=== PATIENT | female | born 1995 | race Caucasian/White ===

== ENCOUNTER 2018-05-07 23:46 | Emergency (ER) | payer MEDICAID, OTHER ==
[~2018-05-07] VITALS: Ht 162.6 cm; Wt 59.0 kg
[2018-05-07 23:46] VITALS: BP 108/64
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
[2018-05-08] MEDS ORDERED: BOOSTRIX VACCINE SYRINGE IM STA
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
--- NOTE | 2018-05-08 00:50 | NUR ---
LAVERN PHILLIPS STATES PATIENT IS REFUSING ALL IMAGING. WENT TO PATIENTS ROOM, PATIENT STATES SHE JUST WANTS TO GO HOME AND GO TO SLEEP.EXPLAINED RISK AND CONSEQUENCES TO PATIENT IF SHE LEAVED, PATIENT VOICED UNDERSTANDING. GRANDMA OF PATIENT SIGNED AMA FORM. IV DC'D, TIP INTACT, NO BLEEDING
[2018-05-08 01:02] VITALS: BP 113/68
== END 2018-05-08 00:50 | disposition left against medical advice (07) ==
LOC: EDBD 23:46 → ER 23:46
DX: S00.93XA Contusion of unspecified part of head, initial encounter (principal); S10.93XA Contusion of unspecified part of neck, initial encounter; M79.671 Pain in right foot; N28.9 Disorder of kidney and ureter, unspecified; F10.129 Alcohol abuse with intoxication, unspecified; F12.10 Cannabis abuse, uncomplicated; F15.10 Other stimulant abuse, uncomplicated; F17.210 Nicotine dependence, cigarettes, uncomplicated; Z88.6 Allergy status to analgesic agent; Y04.0XXA Assault by unarmed brawl or fight, initial encounter; Y93.89 Activity, other specified; Y92.098 Other place in other non-institutional residence as the place of occurrence of the external cause; Y99.8 Other external cause status
CPT/HCPCS: 36415; 84703; 90471; 99284; G0481

== ENCOUNTER 2018-06-19 03:23 | Emergency (ER) | payer MEDICAID ==
[~2018-06-19] VITALS: Ht 160 cm; Wt 59.0 kg
[2018-06-19] MEDS ORDERED: ATARAX PO STA (03:45)
[2018-06-19] MEDS ORDERED: ATARAX ONE (03:52)
--- NOTE | 2018-06-19 03:53 | PCM.EKG ---
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
[2018-06-19 04:11] LABS: BASOPHIL % 0.2 % (0.0-0.2); EOSINOPHIL # 0.1 10^3/uL (0.0-0.2); EOSINOPHIL % 0.4 % (0.0-5.0); HEMOGLOBIN 13.9 g/dL (12.0-15.0); LYMPHOCYTES # 1.8 10^3/uL (1.0-4.8); LYMPHOCYTES % 11.4 % (24.0-44.0); MEAN CELL HGB 31.6 pg (26-34); MEAN CELL HGB CONCENTRATION 34.1 g/dL (33-37); MEAN CORP VOLUME 92.7 fL (78-100); MONOCYTES % 6.3 % (5.0-12.0); NEUTROPHIL # 12.9 10^3/uL (1.8-7.7); NEUTROPHILS % 81.3 % (41.0-85.0); WHITE BLOOD CELL 15.9 10^3/uL (4.5-11.0)
--- NOTE | 2018-06-19 04:20 | DIREP ---
PROCEDURE:CHEST 1 VIEW COMPARISON:None. INDICATIONS:Chest pain FINDINGS: LUNGS/PLEURA:No significant pulmonary parenchymal abnormalities. No effusions. VASCULATURE:Normal. Unremarkable pulmonary vasculature. CARDIAC:Normal. No cardiac silhouette abnormality or cardiomegaly. MEDIASTINUM:Normal. No visible mass or adenopathy. BONES:Normal. No fracture or visible bony lesion. OTHER:Negative. CONCLUSION:Normal examination. Dictated by: Michael Boggs Jr. on 06/19/2018 at 04:18 AM
[2018-06-19 04:27] LABS: ALANINE AMINOTRANSFERASE(ML) 28 U/L (12-78); ALKALINE PHOSPHATASE 85 U/L (50-136); ASPARTATE AMINO TRANSFERASE 38 U/L (0-35); CALCIUM 9.1 mg/dL (8.4-10.5); CARBON DIOXIDE 24.3 mmol/L (20.0-32); GLUCOSE 103 mg/dL (70-110)
[2018-06-19 04:43] VITALS: BP 132/57
== END 2018-06-19 04:45 | disposition home or self-care (01) ==
LOC: ER 03:23
DX: F41.9 Anxiety disorder, unspecified (principal); F17.210 Nicotine dependence, cigarettes, uncomplicated; R79.1 Abnormal coagulation profile; Z88.6 Allergy status to analgesic agent
CPT/HCPCS: 36415; 71045; 80053; 84484; 84703; 85025; 85379; 93005; 99285

== ENCOUNTER 2018-10-07 21:48 | Emergency (ER) | payer MEDICAID, OTHER ==
[~2018-10-07] VITALS: Ht 160 cm; Wt 61.2 kg
--- NOTE | 2018-10-07 21:48 | NUR ---
POISON CONTROL SPOKE WITH SHEILA MUÑIZ AT [facility] POISON CONTROL. STATES TO DO A TYLENOL LEVEL 4 HOURS AFTER INGESTION. FOR THE BENADRYL WATCH FOR SEIZURES,SEROTONIN SYNDROME,AND WATCH FOR WIDE QRS IF >100 START BICARB DRIP. GIVEN BENZOS AND IV FLUIDS. EDP NOTIFIED.
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
--- NOTE | 2018-10-07 22:13 | PCM.EKG ---
[facility] Test Date: 2018-10-07 Test Time: 22:12:11 Pat Name: LORENZO NAJERA Department: Room: Gender: F Asset Coordinator: YARIEL : 1995 Requested By: TRAVIS PAUL Order Number: [id number] Reading MD: Travis PAUL Measurements Intervals [place] Rate: 85 P: 67 WY: 152 QRS: 88 QRSD: 80 T: 40 QT: 362 QTc: 430 Interpretive Statements Normal sinus rhythm Normal ECG Compared to ECG 06/19/2018 03:38:49 Sinus tachycardia no longer present Electronically Signed On 10-12-2018 7:45:[address] LIGHT WIRER by Travis PAUL Please click the below link to view image of tracing.
[2018-10-07 22:16] LABS: BASOPHIL # 0.1 10^3/uL (0.0-0.1); BASOPHIL % 0.7 % (0.0-0.2); EOSINOPHIL % 0.6 % (0.0-5.0); HEMOGLOBIN 13.5 g/dL (12.0-15.0); LYMPHOCYTES # 2.7 10^3/uL (1.0-4.8); LYMPHOCYTES % 40.6 % (24.0-44.0); MEAN CELL HGB 30.8 pg (26-34); MEAN CELL HGB CONCENTRATION 32.5 g/dL (33-37); MEAN CORP VOLUME 94.8 fL (78-100); MONOCYTES # 0.5 10^3/uL (0.3-0.8); MONOCYTES % 7.3 % (5.0-12.0); NEUTROPHIL # 3.3 10^3/uL (1.8-7.7); NEUTROPHILS % 49.5 % (41.0-85.0); RED CELL DISTRIBUTION WIDTH 13.3 % (11.5-14.5); WHITE BLOOD CELL 6.7 10^3/uL (4.5-11.0)
[2018-10-07 22:18] LABS: BILIRUBIN,URINE NEGATIVE (NEGATIVE); UROBILINOGEN,URINE NORMAL (NEGATIVE)
[2018-10-07 22:32] LABS: HCG URINE PREGNANCY NEGATIVE (NEGATIVE)
[2018-10-07 22:37] LABS: APPEARANCE,URINE CLEAR (CLEAR); UA COLOR YELLOW (YELLOW)
[2018-10-07 22:41] LABS: CALCIUM 8.6 mg/dL (8.4-10.5); CARBON DIOXIDE 23.9 mmol/L (20.0-32)
[2018-10-07] MEDS ORDERED: NS 1000ML 1,000 ML IV STA (22:55)
[2018-10-07] MEDS ORDERED: NS 1000ML 1,000 ML ONE (22:57)
[2018-10-07 23:05] VITALS: BP 116/66
[2018-10-08 00:05] VITALS: BP 145/75
--- NOTE | 2018-10-08 00:30 | NUR ---
UPDATE PATIENT SITTING UP IN BED TALKING WITH [place] [employer] OFFICER, OFFICER AT DOOR. NO NEEDS VOICED BY PATIENT OR OFFICER
[2018-10-08 01:05] VITALS: BP 124/73
[2018-10-08 02:05] VITALS: BP 124/75
[2018-10-08 02:30] LABS: ALANINE AMINOTRANSFERASE(ML) 16 U/L (12-78); ALKALINE PHOSPHATASE 79 U/L (50-136); ASPARTATE AMINO TRANSFERASE 21 U/L (0-35)
--- NOTE | 2018-10-08 02:33 | NUR ---
TPC CALLED TPC FOR CONSULT WITH PATIENT, STATES THEY WILL NOTIFY COURIER DRIVER
--- NOTE | 2018-10-08 02:48 | NUR ---
TPC SINGH WITH TPC CALLED AND STATED SHE WILL GO TO THE OFFICE AND CALL ME BACK
[2018-10-08 03:05] VITALS: BP 109/60
--- NOTE | 2018-10-08 03:08 | NUR ---
TPC PATIENT IN WITH SINGH FROM [facility] AND [place] [employer] OFFICER FOR TELECONFERENCE
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
--- NOTE | 2018-10-08 03:39 | NUR ---
MARCOS SPOKE WITH CAMRYN AT THE [facility], PAPERWORK HAS BEEN FAX. [facility] WAITING ON ASSESSMENT FROM ANIBAL WITH TPC.
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
[2018-10-08 04:05] VITALS: BP 110/68
--- NOTE | 2018-10-08 04:06 | NUR ---
ARLEN KING STATES THEY HAVE NO REASON TO KEEP PATIENT, NO SUICIDAL STATEMENTS WERE MADE. ONEYDA TREVIÑO STATES THEY THEY ARE RELEASING PATIENT
--- NOTE | 2018-10-08 04:08 | NUR ---
IV PATIENT DC'D IV, TIP INTACT, NO BLEEDING
[2018-10-08 04:15] VITALS: BP 110/68
== END 2018-10-08 04:15 | disposition home or self-care (01) ==
LOC: EDBD 21:48 → ER 21:48
DX: T39.1X2A Poisoning by 4-Aminophenol derivatives, intentional self-harm, initial encounter (principal); F10.129 Alcohol abuse with intoxication, unspecified; Z88.6 Allergy status to analgesic agent; Y92.89 Other specified places as the place of occurrence of the external cause; Y90.6 Blood alcohol level of 120-199 mg/100 ml
CPT/HCPCS: 36415 ×2; 80053; 80076; 80307; 81000; 81025; 85025; 87077; 87086; 87186; 93005; 99284; G0481 ×2; G0482; G0483 ×2; J7030

== ENCOUNTER 2018-12-15 17:54 | Emergency (ER) | payer OTHER ==
[~2018-12-15] VITALS: Ht 160 cm; Wt 59.0 kg
[2018-12-15 17:59] VITALS: BP 119/69
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
[2018-12-15 18:40] VITALS: BP 119/69
== END 2018-12-15 18:37 | disposition home or self-care (01) ==
LOC: ER 17:54 → EDBD 17:54 → ER 18:37
DX: S01.511A Laceration without foreign body of lip, initial encounter (principal); S70.311A Abrasion, right thigh, initial encounter; F17.210 Nicotine dependence, cigarettes, uncomplicated; F12.10 Cannabis abuse, uncomplicated; Z88.6 Allergy status to analgesic agent; Y04.0XXA Assault by unarmed brawl or fight, initial encounter; Y93.89 Activity, other specified; Y92.89 Other specified places as the place of occurrence of the external cause; Y99.8 Other external cause status
CPT/HCPCS: 99283

== ENCOUNTER 2019-01-19 12:18 | Emergency (ER) | payer MEDICAID, OTHER ==
[~2019-01-19] VITALS: Ht 160 cm; Wt 58.5 kg
[2019-01-19 12:41] VITALS: BP 109/60
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
[2019-01-19 13:18] VITALS: BP 109/60
== END 2019-01-19 13:13 | disposition home or self-care (01) ==
LOC: ER 12:18
DX: L03.811 Cellulitis of head [any part, except face] (principal); L02.811 Cutaneous abscess of head [any part, except face]; F17.210 Nicotine dependence, cigarettes, uncomplicated; Z88.6 Allergy status to analgesic agent
CPT/HCPCS: 99283

== ENCOUNTER 2019-06-20 11:39 | Emergency (ER) | payer OTHER ==
[~2019-06-20] VITALS: Ht 160 cm; Wt 59.0 kg
[2019-06-20 11:59] VITALS: BP 116/81
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
[2019-06-20 12:15] LABS: BILIRUBIN,URINE NEGATIVE (NEGATIVE); UROBILINOGEN,URINE NORMAL (NEGATIVE)
[2019-06-20 12:17] LABS: APPEARANCE,URINE CLEAR (CLEAR); UA COLOR YELLOW (YELLOW)
[2019-06-20 12:26] LABS: BASOPHIL # 0.1 10^3/uL (0.0-0.1); BASOPHIL % 0.5 % (0.0-0.2); EOSINOPHIL # 0.2 10^3/uL (0.0-0.2); EOSINOPHIL % 1.8 % (0.0-5.0); HEMOGLOBIN 13.1 g/dL (12.0-15.0); LYMPHOCYTES % 19.5 % (24.0-44.0); MEAN CELL HGB 31.6 pg (26-34); MEAN CELL HGB CONCENTRATION 33.2 g/dL (33-37); MEAN CORP VOLUME 94.9 fL (78-100); MEAN PLATELET VOLUME 8.3 fL (7.8-11.0); MONOCYTES # 0.7 10^3/uL (0.3-0.8); MONOCYTES % 6.5 % (5.0-12.0); NEUTROPHIL # 7.2 10^3/uL (1.8-7.7); NEUTROPHILS % 71.5 % (41.0-85.0); RED CELL DISTRIBUTION WIDTH 12.9 % (11.5-14.5); WHITE BLOOD CELL 10.1 10^3/uL (4.5-11.0)
--- NOTE | 2019-06-20 12:27 | ER.PDOC ---
General Chief Complaint: Female Urogenital Problems Stated Complaint: KIDNEY PAIN Time seen by MD: 11:48 Source: patient Exam Limitations: no limitations History of Present Illness Initial Comments Pt c/o L flank pain, has had some mild dysuria today as well. Timing/Duration: 24 hours Severity/Quality: moderate Radiation: no radiation Associated Symptoms: other (dysuria) Exacerbated by: nothing Relieved By: nothing Allergies: Coded Allergies: ibuprofen (Verified Adverse Reaction, Unknown, 08/27/16) Home Meds Unable to Obtain Active Prescriptions or Reported Meds Vital Signs First Vital Signs Date Time Temp Pulse Resp B/P (MAP) Pulse Ox O2 Delivery O2 Flow Rate FiO2 06/20/19 11:56 98.1 88 18 06/20/19 11:57 98 Room Air 06/20/19 11:59 116/81 (93) Last Vital Signs Date Time Temp Pulse Resp B/P (MAP) Pulse Ox O2 Delivery O2 Flow Rate FiO2 06/20/19 11:59 98.1 88 18 116/81 (93) 98 Room Air Past Medical History Medical History: no pertinent history Surgical History: other Social History Smoking: cigarettes Alcohol Use: none Drug Use: none Constitutional: denies chills, denies fever EENTM: no symptoms reported Respiratory: no symptoms reported Cardiovascular: no symptoms reported Gastrointestinal: no symptoms reported Genitourinary: burning, dysuria; denies discharge, denies frequency; flank pain ; denies hematuria, denies incontinence, denies urgency Musculoskeletal: no symptoms reported Skin: no symptoms reported Psychiatric/Neurological: no symptoms reported All Other Systems: Reviewed and Negative Physical Exam General Appearance: No Apparent Distress HEENT: PERRL/EOMI, Normal ENT Inspection, TMs Normal, Pharynx Normal Neck: Non-Tender, Full Range of Motion, Supple, Normal Inspection Respiratory: chest non-tender, lungs clear, normal breath sounds, no respiratory distress, no accessory muscle use Cardiovascular: Regular Rate, Rhythm, No Edema, No Gallop, No JVD, No Murmur Gastrointestinal: Normal Bowel Sounds Rectal: Deferred Back: CVA Tenderness (L) (mild) Extremities: Normal Range of Motion Neurologic/Psychiatric: No Motor/Sensory Deficits, Alert, Normal Mood/Affect, Oriented x 3 Skin: Normal Color, Warm/Dry Lymphatic: No Adenopathy Results/Orders Results/Orders Orders - FOSTER,HAFSA L DO Cbc With Auto Diff (06/20/19 12:00) Comprehensive Metabolic Panel (06/20/19 12:00) Urinalysis (06/20/19 12:00) Ct Abd/Pelvis Wo Iv Contrast (06/20/19 12:00) Hcg Urine (06/20/19 12:00) Urine Culture (06/20/19 11:50) Vital Signs Date Time Temp Pulse Resp B/P (MAP) Pulse Ox O2 Delivery O2 Flow Rate FiO2 06/20/19 11:59 98.1 88 18 116/81 (93) 98 Room Air 06/20/19 11:57 98.1 88 18 98 Room Air 06/20/19 11:56 98.1 88 18 Laboratory Tests Test 06/20/19 11:50 06/20/19 12:20 Urine Collection Type VOID Urine Color YELLOW (YELLOW) Urine Appearance CLEAR (CLEAR) Urine Bilirubin NEGATIVE MG/DL (NEGATIVE) Urine Ketones NEGATIVE (NEGATIVE) Urine Specific [place] 1.015 (1.005-1.035) Urine pH 6 (5.0-6.0) Urine Protein NEGATIVE (NEGATIVE) Urine Urobilinogen NORMAL (NEGATIVE) Urine Nitrate NEGATIVE (NEGATIVE) Urine Leukocyte Esterase 100/ul 1+ (NEGATIVE) Urine Blood NEGATIVE (NEGATIVE) Urine RBC NONE SEEN RBC/HPF (NONE Urine WBC 10-25 WBC/HPF (0-2) H Urine Squamous Epithelial Cells MODERATE #/HPF (FEW) Urine Bacteria MODERATE (NONE SEEN) H Urine Glucose NORMAL (NEGATIVE) Urine HCG, Qualitative NEGATIVE (NEGATIVE) White Blood Count 10.1 10^3/uL (4.5-11.0) Red Blood Count 4.15 10^6/uL (4.00-5.20) Hemoglobin 13.1 g/dL (12.0-15.0) Hematocrit 39.4 % (36.0-46.0) Mean Corpuscular Volume 94.9 fL (78-100) Mean Corpuscular Hemoglobin 31.6 pg (26-34) Mean Corpuscular Hemoglobin Concent 33.2 g/dL (33-37) Red Cell Distribution Width 12.9 % (11.5-14.5) Platelet Count 405 10^3/uL (150-400) H Mean Platelet Volume 8.3 fL (7.8-11.0) Neutrophils (%) (Auto) 71.5 % (41.0-85.0) Lymphocytes (%) (Auto) 19.5 % (24.0-44.0) L Monocytes (%) (Auto) 6.5 % (5.0-12.0) Neutrophils # (Auto) 7.2 10^3/uL (1.8-7.7) Lymphocytes # (Auto) 2.0 10^3/uL (1.0-4.8) Monocytes # (Auto) 0.7 10^3/uL (0.3-0.8) Absolute Immature Granulocyte (auto 0.02 10^3 u/L (0-2) Immature Granulocytes % 0.20 % (0.00-0.50) Eosinophils % 1.8 % (0.0-5.0) Basophils % 0.5 % (0.0-0.2) H Basophils # 0.1 10^3/uL (0.0-0.1) Eosinophil Count 0.2 10^3/uL (0.0-0.2) Sodium Level 139 mmol/L (132-145) Potassium Level 4.4 mmol/L (3.6-5.2) Chloride Level 105.0 mmol/L (96-109) Carbon Dioxide Level 23.2 mmol/L (20.0-32) Anion Gap 15.2 Blood Urea Nitrogen 14 mg/dL (7-18) Creatinine 0.83 mg/dL (0.59-1.40) Estimated GFR () 100.5 (>/=60) BUN/Creatinine Ratio 16.0 Glucose Level 88 mg/dL (70-110) Calcium Level 9.0 mg/dL (8.4-10.5) Total Bilirubin 0.2 mg/dL (0.2-1.0) Aspartate Amino Transferase (AST) 14 U/L (0-35) Alanine Aminotransferase (ALT) 6 U/L (12-78) L Alkaline Phosphatase 73 U/L (50-136) Total Protein 7.3 g/dL (6.4-8.2) Albumin 3.9 g/dL (3.4-5.0) Globulin 3.4 EKG/XRAY/CT/US CT Comments: neg abdominal CT Course Sepsis Screening Results: Posi: POSITIVE SEPSIS RISK Duration or Total Time Spent w: 30 MIN Vitals & review Data Vital Sign - Last 24 Hours 06/20/19 06/20/19 06/20/19 11:56 11:57 11:59 Temp 98.1 98.1 98.1 Pulse 88 88 88 Resp 18 18 18 B/P (MAP) 116/81 (93) Pulse Ox 98 98 O2 Delivery Room Air Room Air Laboratory Tests Test 06/20/19 11:50 06/20/19 12:20 Urine Collection Type VOID Urine Color YELLOW Urine Appearance CLEAR Urine Bilirubin NEGATIVE MG/DL Urine Ketones NEGATIVE Urine Specific [place] 1.015 Urine pH 6 Urine Protein NEGATIVE Urine Urobilinogen NORMAL Urine Nitrate NEGATIVE Urine Leukocyte Esterase 100/ul 1+ Urine Blood NEGATIVE Urine RBC NONE SEEN RBC/HPF Urine WBC 10-25 WBC/HPF Urine Squamous Epithelial Cells MODERATE #/HPF Urine Bacteria MODERATE Urine Glucose NORMAL Urine HCG, Qualitative NEGATIVE White Blood Count 10.1 10^3/uL Red Blood Count 4.15 10^6/uL Hemoglobin 13.1 g/dL Hematocrit 39.4 % Mean Corpuscular Volume 94.9 fL Mean Corpuscular Hemoglobin 31.6 pg Mean Corpuscular Hemoglobin Concent 33.2 g/dL Red Cell Distribution Width 12.9 % Platelet Count 405 10^3/uL Mean Platelet Volume 8.3 fL Neutrophils (%) (Auto) 71.5 % Lymphocytes (%) (Auto) 19.5 % Monocytes (%) (Auto) 6.5 % Neutrophils # (Auto) 7.2 10^3/uL Lymphocytes # (Auto) 2.0 10^3/uL Monocytes # (Auto) 0.7 10^3/uL Absolute Immature Granulocyte (auto 0.02 10^3 u/L Immature Granulocytes % 0.20 % Eosinophils % 1.8 % Basophils % 0.5 % Basophils # 0.1 10^3/uL Eosinophil Count 0.2 10^3/uL Sodium Level 139 mmol/L Potassium Level 4.4 mmol/L Chloride Level 105.0 mmol/L Carbon Dioxide Level 23.2 mmol/L Anion Gap 15.2 Blood Urea Nitrogen 14 mg/dL Creatinine 0.83 mg/dL Estimated GFR () 100.5 BUN/Creatinine Ratio 16.0 Glucose Level 88 mg/dL Calcium Level 9.0 mg/dL Total Bilirubin 0.2 mg/dL Aspartate Amino Transf (AST/SGOT) 14 U/L Alanine Aminotransferase (ALT/SGPT) 6 U/L Alkaline Phosphatase 73 U/L Total Protein 7.3 g/dL Albumin 3.9 g/dL Globulin 3.4 Sepsis Infection Criteria Pres: None O2 Sat by Pulse Oximetry: 98 Departure Time of Disposition: 13:12 Disposition: 01 HOME, SELF-CARE Impression: Primary Impression: UTI (urinary tract infection) Condition: Stable Referrals: PCP,UNKNOWN (PCP) PRIMARY CARE PROVIDER Scripts Unable to Obtain Active Prescriptions or Reported Meds Duration or Time Spent with Pa: 30 Problem Qualifiers Primary Impression: UTI (urinary tract infection) Urinary tract infection type: site unspecified Hematuria presence: without hematuria Qualified Codes: N39.0 - Urinary tract infection, site not specified HAFSA AU DO Jun 20, 2019 12:27
[2019-06-20 12:51] LABS: CARBON DIOXIDE 23.2 mmol/L (20.0-32)
--- NOTE | 2019-06-20 13:07 | DIREP ---
PROCEDURE:CT ABDOMEN/PELVIS W/O CONTRAST COMPARISON:None. INDICATIONS:L flank pain, hx of hydronephrosis/ureteral surgery TECHNIQUE:Axial images were created through the abdomen and pelvis without intravenous contrast material. No oral contrast was administered. Sagittal and coronal reconstructions were performed from source images. FINDINGS: LUNG BASES:Normal. No visible pulmonary or pleural disease. LIVER:Normal. No significant liver lesions are identified. BILIARY:Normal. No visible dilatation or calcification. PANCREAS:Normal. No lesion, fluid collection, ductal dilatation, or atrophy. SPLEEN:Normal. No enlargement or focal lesion. ADRENALS:Normal. No mass or enlargement. URINARY TRACT:Normal. No urinary calculi. No focal lesions or hydronephrosis. AORTA/VASCULAR:Normal. No aneurysm. RETROPERITONEUM:Normal. No mass or adenopathy. BOWEL/MESENTERY:The appendix is not visualized. There is no intestinal obstruction, free fluid, free air or mesenteric inflammatory changes. ABDOMINAL WALL:Normal. No mass or hernia. PELVIC ORGANS:Normal. No visible mass. Pelvic organs appropriate for patient age. BONES:Normal for age. No bony lesion or acute fracture. OTHER:Negative. CONCLUSION:No acute abdomen/pelvis abnormalities. Dictated by: Joshua Schreiber M.D. on 06/20/2019 at 12:58 PM
[2019-06-20 13:11] VITALS: BP 93/44
[2019-06-20 13:13] VITALS: BP 93/44
== END 2019-06-20 13:22 | disposition home or self-care (01) ==
LOC: ER 11:39
DX: N39.0 Urinary tract infection, site not specified (principal); F17.210 Nicotine dependence, cigarettes, uncomplicated; Z88.6 Allergy status to analgesic agent
CPT/HCPCS: 36415; 74176; 80053; 81000; 81025; 85025; 87077; 87086; 87186; 99285